=== PATIENT | female | born 1970 | race Caucasian/White ===

== ENCOUNTER → 2019-11-04 07:31 | Outpatient (CLI) | payer OTHER, SELFPAY ==
--- NOTE | ~2019-11-04 | XR_ITS ---
EXAMINATION: XR knee RT min 4V DATE: 11/04/2019 08:02 INDICATION: Right knee pain. TECHNIQUE: 4 views of right knee were obtained. COMPARISON: None. FINDINGS: Bone alignment is normal. No fracture. There is mild tricompartmental osteoarthritis. No kn ee joint effusion. IMPRESSION: 1. Mild right knee osteoarthritis. Reviewed, dictated and finalized at location B.
== END ==
PROVIDERS: PCP Nurse Practitioner Adult Health; Visit Provider Nurse Practitioner Adult Health
DX: M17.11 Unilateral primary osteoarthritis, right knee (principal)
CPT/HCPCS: 73564

== ENCOUNTER → 2019-11-10 08:03 | Outpatient (CLI) | payer OTHER, SELFPAY ==
--- NOTE | ~2019-11-10 | US_ITS ---
EXAMINATION: US right upper quadrant DATE: 11/10/2019 08:27 INDICATION: Elevated liver enzymes TECHNIQUE: Multiple grayscale and Doppler ultrasound images of the abdomen were obtained. COMPARISON: None available FINDINGS: The head and and body of the pancreas are normal. The pancreatic tail is obscured by bowel gas. The liver demonstrates increased echogenicity, heterogenous echotexture, and decreased through t ransmission. No surface nodularity. Normal hepatopetal flow in the main portal vein. The gallbladder is normal with no abnormal wall thickening, pericholecystic fluid or stones. The normal common bile d uct measures 3 mm. There was no sonographic Banegas sign. IMPRESSION: 1. Diffuse hepatic steatosis. Reviewed, dictated and finalized at location A.
== END ==
PROVIDERS: PCP Nurse Practitioner Adult Health; Visit Provider Nurse Practitioner Adult Health
DX: R74.8 Abnormal levels of other serum enzymes (principal); K76.0 Fatty (change of) liver, not elsewhere classified
CPT/HCPCS: 76705

== ENCOUNTER → 2020-01-06 07:24 | Outpatient (CLI) | payer OTHER, SELFPAY ==
--- NOTE | ~2020-01-06 | MM_ITS ---
EXAMINATION: MM screening belen BI w adolfo HISTORY: Screening TECHNIQUE: Craniocaudal and mediolateral oblique 3-D tomosynthesis images were obtained and synthetic 2-D images were generated. CAD analysis was submitted and interpreted. COMPARISON: Comparison to multiple prior studies sequentially, with oldest reviewed study dated 10/2011. BREAST PARENCHYMAL COMPOSITION: The breasts are heterogeneously dense, which may obscure small masses . FINDINGS: There is no evidence of suspicious mass, calcification, or architectural distortion to sugg est malignancy in either breast. There has been no suspicious interval change. IMPRESSION: 1. No mammographic evidence of malignancy. 2. Recommend routine screening mammography in one year. BI-RADS Category 1: Negative Reviewed, dictated and finalized at location A.
== END ==
PROVIDERS: PCP Nurse Practitioner Adult Health; Visit Provider Nurse Practitioner Adult Health
DX: Z12.31 Encounter for screening mammogram for malignant neoplasm of breast (principal)
CPT/HCPCS: 77063; 77067

== ENCOUNTER 2020-02-27 08:30 | Outpatient (RCR) | payer OTHER, SELFPAY ==
--- NOTE | 2020-01-30 13:51 | PTOPEVAL ---
Thank you for referring Jesenia Carpenter to [facility].? The patient is scheduled to be seen for therapy? 2 x/week for 4-6 weeks. Please review, sign, date and return this plan of care GRETEL. I agree with and certify that the following plan of care is medically necessary. Referring Physician Date Attending Provider: Jorge Potts MD Referring Provider: *PT Outpatient Evaluation Start: 01/30/20 12:27 Freq: Status: Active Protocol: Document 01/30/20 12:33 DERRELL (Rec: 01/30/20 13:37 DERRELL [id number]) Therapy Assessment Status Assessment Status Assessment Status Evaluation Outpatient Past Medical History Past Medical History No Past Medical/Surgical History Patient/Family Denies Significant Past Medical/ Surgical History Evaluation Information Problem Diagnosis right quad tendonitis Onset 2 yrs Cause chronic Subjective Information She has been having knee pain Query Text:As Reported By Patient/ for years with progression of Family symptoms in the past 6 months She reports increased difficulty picking up grandkids from floor. She reports increased pain with steps and prolonged walking. She knees have given out descending steps. She reports increased pain with prolonged sitting. She works from home and sits for 1-2 hour intervals. Prior to COVID she went to the gym 2-3x/wk for walking on the TM for 30 min. She performed limited resistance ex. Diagnostic Tests X-Rays For This Problem Yes: There is mild tricompartmental osteoarthritis Pain Assessment Timing of Pain Assessment Timing of Pain Assessment Assessment Pain Scale Pain Scale Used Numeric (1 - 10) Self Report Pain Assessment Right Knee(s) Reported Pain Level 5 Pain Description Aching,Sharp Pain Frequency Chronic,Continuous Lowest Pain Intensity 1 Greatest Pain Intensity 8 Pain Aggravating Factors Bending,Lifting,Prolonged Position,Sitting,Stair Climbing,Walking,Weight Bearing/Standing Pain Behaviors
--- NOTE | 2020-02-27 12:48 | PTOPEVAL ---
Thank you for referring Jesenia Carpenter to [facility].? The patient is scheduled to be seen for therapy? 2 x/week for 3 weeks to address progression of HEP and continued pain. Please review, sign, date and return this plan of care GRETEL. I agree with and certify that the following plan of care is medically necessary. Referring Physician Date Attending Provider: Jorge Potts MD Referring Provider: Progress Note *PT Outpatient Evaluation Start: 01/30/20 12:27 Freq: Status: Active Protocol: Document 02/27/20 08:29 DERRELL (Rec: 02/27/20 09:16 DERRELL [id number]) Outpatient Past Medical History Past Medical History No Past Medical/Surgical History Patient/Family Denies Significant Past Medical/ Surgical History Evaluation Information Problem Diagnosis right quad tendonitis Onset 2 yrs Cause chronic Subjective Information She has been having knee pain Query Text:As Reported By Patient/ for years with progression of Family symptoms in the past 6 months Reports increased pain with prolonged standing > 1 hr. She walked 3 hours on Sat for shopping with increased knee pain. She will use icey hot for pain relief. States the increased pain does not last as long as it did before therapy. She reports improved ability to pickle sorter grandkids from floor with improved body mechanics. She denies increased pain with negotiating steps, but increased pain with prolonged walking. She reports her knees have given out only once on descending steps. She limits her prolonged sitting and will change LE position if sitting for longer times. She is performing her HEP 4x/ wk. Pain Assessment Timing of Pain Assessment Timing of Pain Assessment Re-assessment Pain Scale Pain Scale Used Numeric (1 - 10) Self Report Pain Assessment Right Knee(s) Reported Pain Level 4 Pain Description Aching Pain Frequency Chronic,Continuous Lowest Pain Intensity 1 Greatest Pain Intensity
--- NOTE | 2020-03-02 11:21 | PCPTNOTE ---
Pt called to cancel her remaining appointment per MD request.
--- NOTE | 2020-03-02 11:37 | PCPTNOTE ---
Admitting Provider: Attending Provider: Jorge Potts MD Patient:Jesenia Carpenter Date of :1970 Discharge Note Patient has been seen for 8 therapy visits from 01/30/20-02/27/20 to address chronic knee pain. She has improved tolerance with daily activities, but continued symptoms with walking and standing activities. She is indep with her HEP. She has partially achieved her therapy goals at this time. Will DC skilled therapy services at this time. Thank you for referring this patient to [facility]. Please review, sign, date and return this discharge summary GRETEL. I have been updated about the patient's current status and I agree with discharge from the above service at this time. Referring Physician Date
== END 2020-03-05 10:55 | disposition home or self-care (01) ==
LOC: ANHPT 08:30
PROVIDERS: PCP Nurse Practitioner Adult Health; Visit Provider Orthopaedic Surgery
DX: M25.561 Pain in right knee (principal); M76.899 Other specified enthesopathies of unspecified lower limb, excluding foot
CPT/HCPCS: 97035; 97110; 97140; 97161; 97162; 97530

== ENCOUNTER 2020-03-02 01:57 | Outpatient (CLI) | payer OTHER, SELFPAY ==
[2020-03-02 18:46] LABS: SARS-CoV-2 RNA PCR Negative
== END 2020-03-02 01:58 | disposition home or self-care (01) ==
LOC: ANHCOVIDDT 01:58
PROVIDERS: PCP Nurse Practitioner Adult Health; Visit Provider Internal Medicine Gastroenterology
DX: Z01.818 Encounter for other preprocedural examination (principal); Z20.828 Contact with and (suspected) exposure to other viral communicable diseases
CPT/HCPCS: 87635; C9803; U0003

== ENCOUNTER 2020-03-05 01:18 | Day surgery (SDC) | payer OTHER, SELFPAY ==
[2020-02-24 10:46] VITALS: BMI 33.5
[2020-03-05 06:38] VITALS: BP 131/80; PULSE 79; RESP 16; TEMP 36.5; O2SAT 99; BMI 31.9
[2020-03-05] MEDS: LACTATED RINGERS 1,000 ML 150 ML IV CONT (06:47)
--- NOTE | 2020-03-05 07:09 | WPDANESEPPF ---
Anes - Initial Pre Proc Eval Procedure: Operation Date: 03/05/20 08:00 Proposed Procedures p Screening Colonoscopy - Garrison Devi MD Date/Time: 03/05/20 07:09 Surgeon: Garrison Devi MD Pre Op Diagnosis: Neoplasm Screening Patient Data Age: 50 Gender: F Height: 5 ft 3 in Weight: 81.9 kg Last Vital Signs Temp 36.5 C 03/05/20 06:38 Pulse 79 03/05/20 06:38 Resp 16 03/05/20 06:38 BP 131/80 03/05/20 06:38 Pulse Ox 99 03/05/20 06:38 Allergies Allergy/AdvReac Type Severity Reaction Status Date / Time Penicillins Allergy Unknown Unknown Verified 03/05/20 06:33 Home Medications Medication Instructions Recorded Confirmed Type galcanezumab-gnlm 120 mg/mL 120 mg SUBCUT MONTHLY 01/19/20 03/01/20 History subcutaneous syringe meloxicam 7.5 mg tablet 7.5 mg PO DAILY #30 tablet 01/19/20 03/01/20 Rx topiramate 50 mg tablet 50 mg PO BID 01/19/20 03/01/20 History Patient hx anesthesia problems: none Family hx anesthesia problems: none PMFSH Past Medical History Medical History BMI 32.0-32.9,adult Migraine Surgical History Surgical History H/O: hysterectomy History of appendectomy Family History Family History Father Family history of type 2 diabetes mellitus Cancer Other Family history of migraine headaches Social History Social History Smoking status: Never smoker Alcohol intake: never Living arrangements: with family Additional occupation/education comments: [employer] Gender identity (if verbalized by the patient): Female Spiritual care concerns: No Anes - Eval Final PreProcedure Day of Procedure 03/05/20 07:09 Patient weight: obese Lungs: clear to auscultation Airway: Mallampati scale class II Neurological: alert and oriented Last oral intake: >/= 8 hours ASA classification: II Emergent: no Anesthetic plan: proceed Anesthesia type and monitoring: general GIVS and standard monitoring Informed Consent: The patient's anesthetic plan and its attendant risks and benefits were discussed with the patient/family/POA. Questions were solicited and answers provided to the satisfaction of the patient/family/POA.
--- NOTE | 2020-03-05 07:55 | WPDGICN ---
Assessment and Plan Assessment and plan (1) Encounter for screening colonoscopy: Code(s): Z12.11 - Encounter for screening for malignant neoplasm of colon Status: Acute Assessment and Plan: Patient appears to be at average risk for colon polyps. Plan is for screening colonoscopy at this time. Because of patient's age. GI Consult Note Consult date/time: 03/05/20 07:55 HPI: Jesenia Carpenter is a 50 year old female Seen in evaluation at the request of Dr. Oliveira. patient presents for screening colonoscopy. Patient states that her current weight appetite bowel movements are normal. She denies abdominal pain. She has had no bleeding. Her family history is noncontributory. Review of Systems Review of Systems: All systems reviewed & are unremarkable except as noted in HPI and below PMFSH Past Medical History Medical History BMI 32.0-32.9,adult Migraine Surgical History Surgical History H/O: hysterectomy History of appendectomy Family History Family History Father Family history of type 2 diabetes mellitus Cancer Other Family history of migraine headaches Social History Social History Smoking status: Never smoker Alcohol intake: never Living arrangements: with family Additional occupation/education comments: [employer] Gender identity (if verbalized by the patient): Female Spiritual care concerns: No Meds Home Medications and Allergies Home Medications Medication Instructions Recorded Confirmed Type galcanezumab-gnlm 120 mg/mL 120 mg SUBCUT MONTHLY 01/19/20 03/01/20 History subcutaneous syringe meloxicam 7.5 mg tablet 7.5 mg PO DAILY #30 tablet 01/19/20 03/01/20 Rx topiramate 50 mg tablet 50 mg PO BID 01/19/20 03/01/20 History Allergies Allergy/AdvReac Type Severity Reaction Status Date / Time Penicillins Allergy Unknown Unknown Verified 03/05/20 06:33 Vital Signs Vital Signs - 24 hr 03/05/20 06:38 Temperature 97.7 F Pulse Rate 79 Respiratory Rate 16 Blood Pressure 131/80 Pulse Oximetry 99 Exam Narrative: Exam Narrative: Physical exam reveals patient to be alert. Vital signs stable. HEENT exam unremarkable. Lungs are clear to auscultation and percussion. Heart is without murmur or extra sounds. Abdominal exam bowel sounds are present soft nontender with no hepatosplenomegaly. Digital external rectal exam is normal.
[2020-03-05 08:24] VITALS: BP 118/73; PULSE 64; RESP 19; O2SAT 98
[2020-03-05 08:34] VITALS: BP 108/72; PULSE 60; RESP 18; O2SAT 98
[2020-03-05 08:44] VITALS: BP 103/72; PULSE 60; RESP 22; O2SAT 100
== END 2020-03-05 08:54 | disposition home or self-care (01) ==
PROVIDERS: PCP Nurse Practitioner Adult Health; Visit Provider Internal Medicine Gastroenterology
PROC: 0DJD8ZZ Inspection of Lower Intestinal Tract, Via Natural or Artificial Opening Endoscopic (ICD-10-PCS; CPT 45378; principal; 2020-03-05 08:00)
DX: Z12.11 Encounter for screening for malignant neoplasm of colon (principal); K64.8 Other hemorrhoids; G43.909 Migraine, unspecified, not intractable, without status migrainosus; E66.9 Obesity, unspecified; Z68.32 Body mass index [BMI] 32.0-32.9, adult
CPT/HCPCS: 45378; J2704; J7120

== ENCOUNTER → 2020-04-09 07:41 | Outpatient (CLI) | payer OTHER, SELFPAY ==
--- NOTE | ~2020-04-09 | MR_ITS ---
EXAMINATION: MR knee RT wo con DATE: 04/09/2020 08:26 INDICATION: Right knee pain TECHNIQUE: Magnetic resonance imaging (MRI) of the right knee was performed without intravenous contr ast. Sequences included coronal PD-weighted FSE, coronal PD-weighted FS FSE, sagittal T2-weighted FS E, sagittal PD-weighted FS FSE and axial PD weighted fat saturated FSE. COMPARISON: Right knee radiographs dated 11/04/2019 FINDINGS: Medial compartment: Longitudinal horizontal tear extending to the inferior articular surface of the body and posterior ho rn of the medial meniscus. 9 x 3 x 2 mm parameniscal cyst along the periphery of the meniscus at the junction of the body and posterior horn. Partial-thickness cartilage loss along the lateral tibial pl ateau with mild subchondral edema suggesting overlying chondral fissuring at the central aspect. Mild diffuse partial thickness cartilage loss along the weightbearing medial femoral condyle with deeper chondral ulceration posteriorly with irregularity to the articular cortex and mild subarticular cysti c change and edema. Lateral compartment: Lateral meniscus is normal. Articular cartilage is normal. Patellofemoral compartment: Deep chondral fissuring at the patellar apical ridge, medial and lateral facets with small focus of m inimal underlying subarticular edema at the inferior lateral facet. Trochlear cartilage is normal. Ligaments and tendons: Anterior and posterior cruciate ligaments are normal. The medial collateral ligament and fibular naomy ateral ligament complex are normal. Mild tendinopathy at the proximal patellar tendon. Quadriceps ten don is normal. The visualized medial and lateral hamstring tendons as well as the iliotibial band are normal. Fluid: Physiologic amount of fluid in the joint space. No loose osteochondral bodies identified. Osseous/other: Siphon the previous noted small regions of subarticular edema there is normal marrow signal. No fract ure or pathologic marrow replacing process. IMPRESSION: 1. Medial meniscal tear with small para meniscal cyst. 2. Mild osteoarthritis with regions of high-grade chondromalacia in the medial and patellofemoral com partments. Reviewed, dictated and finalized at location A. [employer]TAIN IMPRESSION: 1. Medial meniscal tear with small para meniscal cyst. 2. Mild osteoarthritis with regions of high-grade chondromalacia in the medial and patellofemoral compartments.
== END ==
PROVIDERS: PCP Nurse Practitioner Adult Health; Visit Provider Orthopaedic Surgery
DX: S83.241A Other tear of medial meniscus, current injury, right knee, initial encounter (principal); X58.XXXA Exposure to other specified factors, initial encounter
CPT/HCPCS: 73721

== ENCOUNTER 2021-03-04 00:23 | Day surgery (SDC) | payer OTHER, SELFPAY ==
[2021-02-22 13:52] VITALS: BMI 32.8
--- NOTE | 2021-02-22 14:01 | PC.NURSE ---
Report to the Outpatient Waiting Room, entrance under the green pavilion located off [facility], at time 0600 on date 03/04/21. OR Time: 0730. - You and your visitor will be asked a series of questions to screen for COVID 19 for your protection. - A mask is required within the hospital. - Only one visitor is allowed at this time. Patient visitors will be guided where to wait when not with patient. Preoperative COVID Testing Requirements: No COVID Test needed if: (proof is required; if not received patient will have Rapid Test prior to entry) - Patient has received COVID Vaccine at least 14 days prior to procedure date or - Patient has positive COVID test result within last 90 days of surgery date. COVID Test needed if above criteria is not met If not COVID vaccinated a COVID test must be conducted within 72 hours of surgery and patient is asked to isolate self from time of testing until procedure. You will go to the [facility] for your COVID testing. The [facility] site is located at the corner of [address] [facility]. You will only be called if COVID results are positive and your surgeon may reschedule your elective surgery date. Patients may have clear liquids (water, carbonated beverages, clear teas, apple juice) until 3 hours prior to surgery with a maximum of 20 ounces. - No food from midnight until time of surgery - Infants may have breast milk until 4 hours before surgery, infant formula 6 hours prior to surgery. - Children will be allowed to drink immediately following surgery. If applicable, please bring a bottle or sippy cup to assist with drinking. Juice, water, soda, and popsicles are readily available. For infants on formula, please bring formula the day of surgery. Pacifiers are allowed. Take the following medications with a SIP of water the morning of surgery: NONE Medications to discontinue per physician: VITAMINS/SUPPLEMENTS Date to take last dose: 02/28/21 Please no make-up, nail arabic, hairspray, perfume, deodorant, or body powder the day of surgery. No jewelry (including any body piercings) or valuables the day of surgery, leave them at home. Please take a shower or bath the night before, or the morning of, surgery with an antibacterial soap. Wear comfortable, loose fitting clothing. Children are encouraged to wear pajamas. - Jewelry must be removed prior to entering the operating room. Rings and piercings that are not removed may be cut off. - The hospital will not accept responsibility for valuables. - Please leave all valuables, including medications, at home the day of surgery. If you are going home after surgery, a licensed front end loader driver must drive you home. - NO public transportation without another adult. - We recommend that an adult stay with you for 24 hours following discharge. - We also recommend that you do not drive, make important decision, drink alcoholic beverages, or take any drugs that were not prescribed by your health care provider for at least 24 hours after your discharge time. For Pediatric surgeries, we recommend two adults accompany the child home (only one inside the building at this time). Follow any additional instructions given to you from your surgeon. Telephone instructions given to MARLA ZUNIGA and asked if any additional questions and then verbalized understanding. Patient advised to call surgeon office or pre surgery nurse liaison [phone] if any additional questions.
[2021-03-04] VITALS (8 sets, daily range): BP systolic 93–149; BP diastolic 73–89; PULSE 44–77; RESP 10–18; TEMP 36.1–36.2; O2SAT 98–100
--- NOTE | 2021-03-04 06:50 | WPDANESEPPF ---
Anes - Initial Pre Proc Eval Procedure: Operation Date: 03/04/21 07:30 Proposed Procedures p Right Knee Arthroscopy, Partial Meniscectomy - Jorge Potts MD Date/Time: 03/04/21 06:50 Surgeon: Jorge Potts MD Pre Op Diagnosis: right knee medial meniscal tear Patient Data Age: 51 Gender: F Height: 1.6 m Weight: 83.91 kg Allergies Allergy/AdvReac Type Severity Reaction Status Date / Time Penicillins Allergy Unknown Rash Verified 02/22/21 13:49 Home Medications Medication Instructions Recorded Confirmed Type galcanezumab-gnlm 120 mg/mL 120 mg SUBCUT MONTHLY 01/19/20 02/27/21 History subcutaneous syringe sumatriptan succinate 50 mg tablet 50 ea PO ONCE PRN 12/26/20 02/27/21 History Patient hx anesthesia problems: none Family hx anesthesia problems: none Results Review: All pre-operative results and documents have been reviewed as part of the pre-operative evaluation. [facility] Past Medical History Medical History BMI 32.0-32.9,adult Hyperlipidemia Migraine Tear of medial meniscus of right knee Surgical History Surgical History H/O: hysterectomy History of appendectomy Family History Family History Father Family history of type 2 diabetes mellitus Cancer Other Family history of migraine headaches Social History Social History Smoking status: Never smoker Alcohol intake: never Alcohol use details: occasional Substance use: never Substance use type: does not use Living arrangements: with family Additional occupation/education comments: [employer] Gender identity (if verbalized by the patient): Female Spiritual care concerns: No Anes - Eval Final PreProcedure Day of Procedure 03/04/21 06:50 Patient weight: obese Heart: regular rate and rhythm Lungs: clear to auscultation Airway: Mallampati scale class II Neurological: alert and oriented Last oral intake: >/= 8 hours ASA classification: II Emergent: no Anesthetic plan: proceed Anesthesia type and monitoring: general LMA and standard monitoring Results Review: All pre-operative results and documents have been reviewed as part of the pre-operative evaluation. Informed Consent: The patient's anesthetic plan and its attendant risks and benefits were discussed with the patient/family/POA. Questions were solicited and answers provided to the satisfaction of the patient/family/POA.
[2021-03-04] MEDS: LACTATED RINGERS 1,000 ML 30 ML IV CONT ×2 (06:58→08:36)
[2021-03-04] MEDS: ACETAMINOPHEN 500 MG TABLET 1000 MG PO (06:59)
[2021-03-04] MEDS: KETOROLAC 15 MG/ML VIAL (*BKC) IV PUSH (06:59)
--- NOTE | 2021-03-04 07:20 | WPDHPUPDATE1 ---
History and Physical Update Update Date/Time: 03/04/21 07:20 History and Physical has been reviewed, including an updated exam of the patient. There are NO changes in the patient's condition. Risks, benefits, and alternatives have been discussed and questions answered. Patient agrees to proceed with procedure.
[2021-03-04] MEDS: ceFAZolin 2 GM/D5W 50 ML 2 GM/50 ML BAG IVPB (07:30)
--- NOTE | 2021-03-04 08:50 | P.OP_ITS ---
Procedure Note - Detailed Date of Procedure 03/04/21 Pre-op Diagnosis right knee medial meniscal tear; right knee discoid lateral meniscus Post-op Diagnosis same Procedure Performed right knee arthroscopy partial meniscectomy Surgeon Jorge Potts MD Anesthesia general Description of Procedure The patient was identified and proper site identified. She was taken to the operating room and transferred to the OR table placing her supine taking care to pad the torso and extremities. After general anesthetic induction and intubation, a nonsterile tourniquet was placed high on the right thigh but was not inflated. The right lower extremity was positioned, prepped and draped in usual sterile fashion. 10 cc of 1% lidocaine was injected into the subcutaneous tissue in the area of the portals at start of the procedure, and an additional 10 at the end. The portals were established and the arthroscopy was carried out. articular cartilage showed very mild fraying and fibrillation in the medial, lateral and anterior compartments. How [place] gutters were centrally clear. Complex tearing noted medial meniscus posterior horn into the midbody. Discoid lateral meniscus appreciated. Anterior and posterior cruciate ligaments in continuity. Medial meniscus was contoured back to a stable rim with basket forceps and shaver. The discoid lateral meniscus was saucerized by removing some of the meniscal material from the center portion giving a more normal C- shaped contour. Lateral meniscus was stable after the saucerization. The knee was flushed with a copious amount of arthroscopic fluid and equipment was removed. Portals were closed with three O nylon suture and a sterile dressing was applied. She tolerated the procedure well, was awakened, extubated and taken to recovery area in stable condition. There were no known intraoperative complications. Estimated blood loss was negligible. She received perioperative antibiotics. Estimated Blood Loss 10 Tourniquet Time 0 Drains No Packing No Pathology none sent Complications No immediate complications Condition stable Disposition PACU
--- NOTE | 2021-03-04 09:50 | SUR.PREOP ---
PT DENIES NEED FOR CRUTCHES. STATES SHE HAS A WALKER THAT SHE WILL BE USING
[2021-03-04] MEDS: oxyCODONE HCL (*CRX) 5 MG TAB IR PO (10:12)
== END 2021-03-04 10:38 | disposition home or self-care (01) ==
PROVIDERS: PCP Nurse Practitioner Adult Health; Visit Provider Orthopaedic Surgery
PROC: (CPT 29870; principal; 2021-03-04 07:30)
DX: M23.321 Other meniscus derangements, posterior horn of medial meniscus, right knee (principal); M23.361 Other meniscus derangements, other lateral meniscus, right knee; E66.9 Obesity, unspecified; Z68.32 Body mass index [BMI] 32.0-32.9, adult
CPT/HCPCS: 29880; A9270; J0690; J1100; J1885; J2250; J2405; J2704; J7120

== ENCOUNTER 2021-03-21 09:30 | Outpatient (RCR) | payer OTHER, SELFPAY ==
--- NOTE | 2021-03-06 11:08 | PTOPEVAL ---
PHYSICAL THERAPY EVALUATION Thank you for referring Jesenia Carpenter to [facility].? Jesenia was evaluated for the dx of right knee MT/orthoscopic surgery. The patient is scheduled to be seen for therapy?2 x/week for 4 weeks. Please review, sign, date and return this plan of care GRETEL. I agree with and certify that the following plan of care is medically necessary. 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 The patient reports having knee pain for a long time but got worse the last 2-3 years. The patient had an MRI and found a meniscal tear. The patient had surgery 2 days ago and reports pain still present from surgery. The patient plans to progress work tolerance as able on her own and now just wants to get her knee more mobile and her walking back to normal. Pain Assessment Timing of Pain Assessment Timing of Pain Assessment Assessment Pain Scale Pain Scale Used Numeric (1 - 10) Self Report Pain Assessment Right Knee(s) Reported Pain Level 3 Pain Description Aching,Tightness Pain Frequency Acute,Chronic Pain Aggravating Factors Bending,Exercise/Activity, Supine Pain Behaviors Guarding Pain Score Pain Score 3: Self Report Interventions Used Interventions Used By Clinicians Education,Exercise Pain Relief Interventions Used By Elevation,Exercise,Ice Patient Lower Extremity Range of Motion General Lower Extremity Range of Motion Gross Lower Extremity Range of Motion left knee 0-125' active motion Comments right knee 0-82' active, 0-96' assisted motion Lower Extremity Muscle Strength Testing General Lower Extremity Strength Reason Not Measured WNL/Left
--- NOTE | 2021-03-25 13:17 | PCPTNOTE ---
Admitting Provider: Attending Provider: Jorge Potts MD Patient:Jesenia Carpenter Date of :1970 Physical therapy discharge summary Patient has received 5 therapy visits to address impairment related to right knee surgery. Patient?s initial visit was on 03/06/2021. She demonstrates improved pain, improved knee motion, improved ability to perform functional mobility task. She is indep with her home exercise program at this time. She has achieved her therapy goals. Will discharge therapy services at this time. Thank you for referring this patient to [facility]. Please review, sign, date and return this discharge summary GRETEL. I have been updated about the patient's current status and I agree with discharge from the above service at this time. Referring Physician Date
== END 2021-03-26 09:22 | disposition home or self-care (01) ==
LOC: ANHPT 09:30
PROVIDERS: PCP Nurse Practitioner Adult Health; Visit Provider Orthopaedic Surgery
DX: Z48.89 Encounter for other specified surgical aftercare (principal); Z98.890 Other specified postprocedural states
CPT/HCPCS: 97110; 97140; 97162

== ENCOUNTER → 2021-06-25 07:13 | Outpatient (CLI) | payer OTHER, SELFPAY ==
--- NOTE | ~2021-06-25 | MM_ITS ---
EXAMINATION: MM screening belen BI w adolfo HISTORY: Screening TECHNIQUE: Craniocaudal and mediolateral oblique 3-D tomosynthesis images were obtained and synthetic 2-D images were generated. CAD analysis was submitted and interpreted. COMPARISON: Comparison to multiple prior studies sequentially, with oldest reviewed study dated 10/2011. BREAST PARENCHYMAL COMPOSITION: The breasts are heterogeneously dense, which may obscure small masses . FINDINGS: There is no evidence of suspicious mass, calcification, or architectural distortion to sugg est malignancy in either breast. There has been no suspicious interval change. IMPRESSION: 1. No mammographic evidence of malignancy. 2. Recommend routine screening mammography in one year. BI-RADS Category 1: Negative Reviewed, dictated and finalized at location A.
== END ==
PROVIDERS: PCP Nurse Practitioner Adult Health; Visit Provider Nurse Practitioner Adult Health
DX: Z12.31 Encounter for screening mammogram for malignant neoplasm of breast (principal)
CPT/HCPCS: 77063; 77067

== ENCOUNTER → 2023-04-09 07:12 | Outpatient (CLI) | payer OTHER, SELFPAY ==
--- NOTE | ~2023-04-09 | MM_ITS ---
EXAMINATION: MM screening belen BI w adolfo HISTORY: Screening TECHNIQUE: Craniocaudal and mediolateral oblique 3-D tomosynthesis images were obtained and synthetic 2-D images were generated. CAD analysis was submitted and interpreted. COMPARISON: Comparison to multiple prior studies sequentially, with oldest reviewed study dated 09/2018. BREAST PARENCHYMAL COMPOSITION: The breasts are heterogeneously dense, which may obscure small masses FINDINGS: There is a new asymmetry centrally in the left breast on CC view. The right breast is stabl e without evidence for malignancy. IMPRESSION: 1. New left breast asymmetry centrally on CC view. 2. Additional mammographic views and possible breast ultrasound are recommended. BI-RADS Category 0: Incomplete: Needs additional imaging evaluation. Reviewed, dictated and finalized at location A. ER HAND IMPRESSION: 1. New left breast asymmetry centrally on CC view. 2. Additional mammographic views and possible breast ultrasound are recommended . BI-RADS Category 0: Incomplete: Needs additional imaging evaluation.
== END ==
PROVIDERS: PCP Clinical Nurse Specialist; Visit Provider Clinical Nurse Specialist
DX: Z12.31 Encounter for screening mammogram for malignant neoplasm of breast (principal); R92.8 Other abnormal and inconclusive findings on diagnostic imaging of breast
CPT/HCPCS: 77063; 77067

== ENCOUNTER → 2023-04-29 08:10 | Outpatient (CLI) | payer OTHER, SELFPAY ==
--- NOTE | ~2023-04-29 | MMUS_ITS ---
EXAMINATION: MM diagnostic belen LT w adolfo, US breast LT complete HISTORY: New left mammographic asymmetry reported centrally on 04/09/2023 screening craniocaudal view TECHNIQUE: Additional 3-D tomosynthesis images of the left breast were performed and synthetic 2-D im ages were generated. Rolled medial craniocaudal and rolled lateral craniocaudal views. CAD analysis w as submitted and interpreted. High resolution complete left breast ultrasound examination including a ll 4 quadrants and subareolar area was performed. COMPARISON: 04/09/2023, 06/25/2021 bilateral screening mammogram examinations FINDINGS: MAMMOGRAPHIC FINDINGS: There is an approximately 3.7 mm circumscribed opacity in the posterior central left breast 2.2 cm de ep to the nipple on coned compression craniocaudal view. A similar finding is similar shape and size is noted on June 25, 2021 mammogram (craniocaudal Tomosynthesis image 41/80). The circumscribed charlene ns and the lack of significant change since 06/25/2021, almost 3 years ago, is consistent with benign p rocess. No suspicious mass, architectural distortion, malignant calcification, skin thickening or retraction is detected. ULTRASOUND: 3:00 4 cm from nipple: Parallel circumscribed sonolucency measuring approximately 3 x 9 mm, consisten t with cyst or duct. 5:00 subareolar area approximately 5 x 6 mm relatively sonolucent area without internal vascularity o r posterior shadowing, benign in appearance 6:00 subareolar area: 1.5 x 3 x 3.8 mm circumscribed parallel sonolucency, consistent with benign pro cess Mildly prominent ducts are noted in the subareolar area. No suspicious mass or shadowing is detected. IMPRESSION: 1. Benign findings 2. Routine mammographic screening is recommended BI-RADS Category 2: Benign finding(s). Reviewed, dictated and finalized at location A. WOOD LATHE OPERATOR IMPRESSION: 1. Benign findings 2. Routine mammographic screening is recommended BI-RADS Category 2: Benign finding(s).
== END ==
PROVIDERS: PCP Clinical Nurse Specialist; Visit Provider Clinical Nurse Specialist
DX: R92.8 Other abnormal and inconclusive findings on diagnostic imaging of breast (principal)
CPT/HCPCS: 76641; 77061; 77065; G0279

== ENCOUNTER 2024-02-05 08:45 | Outpatient (CLI) | payer OTHER, SELFPAY ==
[2024-02-05 12:02] LABS: Basophils Absolute Auto 0.1 K/mm3 (0.0-0.1); Basophils Percent Auto 1.8 % (0.2-1.2); Eosinophils Absolute Auto 0.4 K/mm3 (0-0.3); Eosinophils Percent Auto 6.2 % (0-4.4); Hematocrit 40.8 % (37.0-47.0); Hemoglobin 13.7 g/dL (12.0-15.0); Immature Granulocyte Absolute 0.01 K/mm3 (0.00-0.031); Immature Granulocyte Percent A 0.2 % (0-0.5); Lymphocytes Absolute Auto 2.46 K/mm3 (0.9-3.2); Lymphocytes Percent Auto 43.7 % (18.3-44.2); Mean Corpuscular HGB Conc 33.6 g/dl (32-36); Mean Corpuscular Hemoglobin 32.3 pg (26-34); Mean Corpuscular Volume 96.2 fl (80-100); Mean Platelet Volume 10.8 fl (7.4-10.4); Monocytes Absolute Auto 0.5 K/mm3 (0.1-0.6); Monocytes Percent Auto 8.7 % (2.6-8.5); Neutrophils Absolute Auto 2.2 K/mm3 (1.3-6.7); Neutrophils Percent Auto 39.4 % (45.5-73.1); Platelet Count Result 145 k/mm3 (150-375); Red Blood Count 4.24 M/mm3 (4.2-5.4); Red Cell Distribution Width 12.7 % (11.5-14.5); White Blood Count 5.6 K/mm3 (4.5-10.0)
[2024-02-05 12:16] LABS: Alanine Aminotransferase 141 U/L (6-35); Albumin Level 4.1 g/dL (3.5-5.1); Alkaline Phosphatase 82 U/L (38-126); Anion Gap 4 mmol/L (4-12); Aspartate Amino Transferase 129 U/L (14-36); Bilirubin,Total 1.1 mg/dL (0.2-1.3); Blood Urea Nitrogen 9 mg/dL (7-17); Calcium 8.7 mg/dL (8.4-10.2); Carbon Dioxide 31 mmol/L (22-30); Chloride 104 mmol/L (98-107); Cholesterol 169 mg/dL (0-200); Estimated Glomerular Filt Rate > 60; Glucose 93 mg/dL (65-110); HDL Direct 68 mg/dL; Potassium 3.6 mmol/L (3.4-5.0); Sodium 139 mmol/L (137-145); Triglycerides 87 mg/dL (<150)
[2024-02-05 12:26] LABS: LDL Cholesterol Direct 78 mg/dL
[2024-02-05 12:48] LABS: Vitamin D 25 Hydroxy 53.7 ng/mL
[2024-02-05 12:58] LABS: Thyroid Stimulating Hormone 0.901 uIU/mL (0.465-4.680)
== END 2024-02-05 08:46 | disposition home or self-care (01) ==
PROVIDERS: PCP Clinical Nurse Specialist; Visit Provider Clinical Nurse Specialist
DX: E78.5 Hyperlipidemia, unspecified (principal); E55.9 Vitamin D deficiency, unspecified; G43.019 Migraine without aura, intractable, without status migrainosus; K76.0 Fatty (change of) liver, not elsewhere classified; Z13.29 Encounter for screening for other suspected endocrine disorder
CPT/HCPCS: 36415; 80053; 80061; 82306; 84443; 85025

== ENCOUNTER 2024-02-08 13:14 | Outpatient (CLI) | payer OTHER, SELFPAY ==
[2024-02-08 19:59] LABS: Basophils Absolute Auto 0.1 K/mm3 (0.0-0.1); Basophils Percent Auto 1.3 % (0.2-1.2); Eosinophils Absolute Auto 0.3 K/mm3 (0-0.3); Eosinophils Percent Auto 4.9 % (0-4.4); Hematocrit 40.9 % (37.0-47.0); Hemoglobin 14.1 g/dL (12.0-15.0); Immature Granulocyte Absolute 0.01 K/mm3 (0.00-0.031); Immature Granulocyte Percent A 0.2 % (0-0.5); Lymphocytes Absolute Auto 2.37 K/mm3 (0.9-3.2); Lymphocytes Percent Auto 43.1 % (18.3-44.2); Mean Corpuscular HGB Conc 34.5 g/dl (32-36); Mean Corpuscular Hemoglobin 32.7 pg (26-34); Mean Corpuscular Volume 94.9 fl (80-100); Monocytes Absolute Auto 0.4 K/mm3 (0.1-0.6); Monocytes Percent Auto 7.8 % (2.6-8.5); Neutrophils Absolute Auto 2.4 K/mm3 (1.3-6.7); Neutrophils Percent Auto 42.7 % (45.5-73.1); Platelet Count Result 139 k/mm3 (150-375); Red Blood Count 4.31 M/mm3 (4.2-5.4); Red Cell Distribution Width 12.6 % (11.5-14.5); White Blood Count 5.5 K/mm3 (4.5-10.0)
[2024-02-08 20:27] LABS: Alanine Aminotransferase 162 U/L (6-35); Alkaline Phosphatase 75 U/L (38-126); Anion Gap 8 mmol/L (4-12); Aspartate Amino Transferase 139 U/L (14-36); Bilirubin,Total 1.1 mg/dL (0.2-1.3); Blood Urea Nitrogen 13 mg/dL (7-17); Calcium 8.6 mg/dL (8.4-10.2); Carbon Dioxide 31 mmol/L (22-30); Chloride 100 mmol/L (98-107); Estimated Glomerular Filt Rate > 60; Glucose 120 mg/dL (65-110); Potassium 3.1 mmol/L (3.4-5.0); Sodium 139 mmol/L (137-145)
[2024-02-08 22:31] LABS: HIV 1/2 Ab P24 Ag Result Negative (Negative)
[2024-02-08 23:33] LABS: Hepatitis B Surface Antigen Negative (Negative)
[2024-02-08 23:42] LABS: Iron 82 ug/dL (37-170)
[2024-02-08 23:50] LABS: Hepatitis C Virus Antibody Negative (Negative)
[2024-02-08 23:51] LABS: Percent Iron Saturation 26 % (20-50)
== END 2024-02-08 13:15 | disposition home or self-care (01) ==
LOC: ANHGOSHLAB 13:16
PROVIDERS: PCP Clinical Nurse Specialist; Visit Provider Clinical Nurse Specialist
DX: R74.01 Elevation of levels of liver transaminase levels (principal); R74.8 Abnormal levels of other serum enzymes
CPT/HCPCS: 36415; 80053; 82728; 83540; 83550; 85025; 86703; 86803; 87340; G0432

== ENCOUNTER 2024-02-12 07:47 | Outpatient (CLI) | payer OTHER, SELFPAY ==
--- NOTE | ~2024-02-12 | US_ITS ---
Abdominal Sonogram: Real-time sonographic imaging of the abdomen was performed. Clinical History: Abnormal liver enzyme levels Findings: The liver appears echogenic, with no evidence of solid mass lesion or bile duct dilatation . Small hepatic cyst present. Main portal vein demonstrates normal direction of flow. The spleen is n ormal in size without evidence of focal lesion. The gallbladder is well distended, and appears arnel l with no evidence of gallstone or wall thickening. The common bile duct measures 4 mm. The visualiz ed pancreas, aorta, and IVC are unremarkable. The right kidney measures 9.5 cm in length and the lef t kidney measures 11.1 cm. There is no hydronephrosis or renal calculus. Impression: Diffuse fatty infiltration of the liver. Reviewed, dictated and finalized at location M. DIESEL MOTOR MECHANIC Impression: Diffuse fatty infiltration of the liver.
== END 2024-02-12 07:48 | disposition home or self-care (01) ==
PROVIDERS: PCP Clinical Nurse Specialist; Visit Provider Clinical Nurse Specialist
DX: R74.01 Elevation of levels of liver transaminase levels (principal); K76.0 Fatty (change of) liver, not elsewhere classified
CPT/HCPCS: 76700

== ENCOUNTER 2024-07-21 07:13 | Outpatient (CLI) | payer OTHER, SELFPAY ==
--- NOTE | ~2024-07-21 | US_ITS ---
US abdomen limited INDICATION: Elevated liver enzymes PROCEDURE: Realtime right upper abdominal ultrasound. COMPARISON: 02/12/2024 FINDINGS: The pancreas is normal without focal mass or pancreatic ductal dilation. There is a liver cyst measuring 1.8 cm. Normal liver echotexture. No solid hepatic masses are seen. There is normal di rectional flow in the portal vein. The gallbladder is normal without stones, gallbladder wall thickening or pericholecystic fluid. Comm on bile duct measures 4 mm. No sonographic Banegas's sign. IMPRESSION: 1: Unremarkable limited abdominal ultrasound. Reviewed, dictated and finalized at location A.
--- OUTSIDE RECORDS SUMMARY | 2024-07-21 07:16 | XMS_ITS | Clinical Summary ---
Author Organization [facility] Address [address] [place] [address] Care Team Providers Care Desk Reporter Name Role Phone Alphonse Pond MD Primary Care Provider Source Comments [facility],non-owned Affiliates and Associated Physician Practices is amultiple site organization consisting of ambulatory clinics and hospital sitesin [place], [place], [place] and [place]. This disclosure is being madepursuant to the Care Everywhere program and may not contain all information available regarding this patient. Last updated 17.[facility] Allergies Active Allergy Reactions Criticality Noted Date Comments Penicillins Rash Medium 04/28/2017 As child Medications * Be aware that medications may not be up to date on this document. Alwaysverify current medications with the patient. topiramate (TOPAMAX) 50 MG tablet Take 50 mg by mouth 2 times daily Active SUMAtriptan (IMITREX) 25 MG tablet Take 25 mg by mouth daily as needed - may repeat one time for Migraine Maximum daily dose: 200 mg/24 hours Active Encounters Date Type Department Care Team Description 05/19/2024 9:30 AM PLAN CONSULTANT Procedure visit [facility] - [address] [place] [id number] Fidencio Chacko MD Elevated liver enzymes 05/19/2024 Travel 05/13/2024 Travel from Last 3 Months Family History Medical History Relation Name Comments Diabetes - Type 2 Father Relation Name Status Comments Father Alive Mother Alive Social History Tobacco Use Types Packs/Day Years Used Date Smoking Tobacco: Never Smokeless Tobacco: Never Comments No Sex and Gender Information Value Date Recorded Sex Assigned at Not on file Legal Sex Female 6:17 AM PLAN CONSULTANT Gender Identity Not on file Sexual Orientation Not on file Last Filed Vital Signs Vital Sign Reading Time Taken Comments Blood Pressure 110/80 04/28/2017 9:58 AM PLAN CONSULTANT Pulse 96 04/28/2017 9:58 AM PLAN CONSULTANT Temperature 37.1 C (98.8 F) 04/28/2017 9:58 AM PLAN CONSULTANT Respiratory Rate 16 04/28/2017 9:58 AM PLAN CONSULTANT Oxygen Saturation 98% 04/28/2017 9:58 AM PLAN CONSULTANT Inhaled Oxygen Concentration - - Weight 74.8 kg (165 lb) 04/28/2017 9:58 AM PLAN CONSULTANT Height 160 cm (5' 3 ) 04/28/2017 9:58 AM PLAN CONSULTANT Body Mass Index 29.23 04/28/2017 9:58 AM PLAN CONSULTANT Plan of Treatment Health Maintenance Due Date Last Done Comments COLOGUARD (AGES 45-75) - COL ON CA SCREENING 1970 COLON MONITORING 1970 COLONOSCOPY - COLON CA SCREENING 1970 CT COLONOGRAPHY - COLON CA SCREENING 1970 Colorectal Cancer Screening 1970 FIT - COLON CA SCREENING 1970 FLEX SIG - COLON CA SCREENING 1970 LIPID TESTING 1970 MAMMOGRAM 1970 PAP SMEAR 1970 HIV SCREENING 1985 HEPATITIS C SCREENING 02/01/1988 DTAP/TDAP/TD VACCINES (1 - Tdap) 1989 HEPATITIS B VACCINE (1 of 3 - 19+ 3-dose series) 1989 PNEUMOCOCCAL VACCINE 50+ (1 of 1 - PCV) 02/06/2020 ZOSTER VACCINE (1 of 2) 02/06/2020 COVID-19 VACCINE (1 - 2023-2 5 season) 2023 DEPRESSION SCREENING 03/23/2024 INFLUENZA VACCINE (Season Ended) 2024 HIB VACCINE Aged Out No longer eligi ble based on patient's age to complete this topic HPV VACCINE Aged Out No longer eligi ble based on patient's age to complete this topic MENINGOCOCCAL (Group B) VACC INE SHARED DECISION-MAKING Aged Out No longer eligibl e based on patient's age to complete this topic MENINGOCOCCAL GROUPS A/C/Y/W VACCINE Aged Out No longer eligible b ased on patient's age to complete this topic Procedures Procedure Name Priority Date/Time Associated Diagnosis Comments CA LIVER ELASTOGRAPHY Routine 05/19/2024 9:23 AM PLAN CONSULTANT Elevated liver enzymes from Last 3 Months Results * CA LIVER ELASTOGRAPHY (05/19/2024 9:23 AM PLAN CONSULTANT) Narrative Fidencio Stephens MD - 05/19/2024 9:23 AM PLAN CONSULTANT Fidencio Stephens MD 05/21/2024 10:45 PM Diagnosis: Elevated liver enzymes RN verified patient NPO for prior 3 hours. Procedure explained. Date of Exam: 05/19/2024 Liver Stiffness: (LSM, kPa) median: 15.2 IQR/Median% (ideally < 30%): 8% CAP (controlled attenuation parameter): 277 Technical Difficulty: None Ordering Provider: Debbie Gauthier APRN-CNP Fibroscan interpretation: I have personally reviewed the Fibroscan report and associated tracings. The calculated Liver Stiffness Measurement (LSM, kPa) indicates that: The probability of advanced liver fibrosis is: high. The loss of ultrasound signal, (controlled attenuation parameter, CAP [dB/m]), indicates that the probability of hepatic steatosis is: moderate. Fidencio Huynh MD The following criteria are used to indicate the probability of advanced (stage 3-4) fibrosis: < 7.0 kPa: low 7.0-8.9 kPa: low to moderate 9.0-14.9 kPa: moderate 15-20 kPa: high > 20 kPa: very high Liver stiffness > 12 kPa is associated with an increased risk of cirrhosis-related complications over the next 3-5 years (Yadi, 2022). Liver stiffness > 20 kPa is also associated with a high probability of complications of portal hypertension including varices and ascites. Liver stiffness > 50 kPa is associated with a high risk of variceal bleeding. These interpretations are based on the following published data: Yadi J, Cecilio nowak H, Anselmo M, Sanjuana C, Joycelyn M, Cure S, Abhijito J, Nasr P, Yoli L, Hernando CM, Mihaela S, S devaughn Y, Allison E, Tiki A, Megan M, Rubén J, Monty A and Micheal Nowak. Non-invasive tests accurately stratify patients with NAFLD based on their risk of liver-related events. J Hepatol (2021) 76: 5501-1306. Herber PJ, Delma M, Carolina M, et al. Accuracy of FibroScan controlled attenuation parameter and liver stiffness measurement in assessing steatosis and fibrosis in patients with nonalcoholic fatty liver disease. Gastroenterology 2019;156:1994-3535. Tushar MS, Afsaneh R, Van Natta ML, et al. Vibration-controlled transient elastography to assess fibrosis and steatosis in patients with nonalcoholic fatty liver disease. Clin Gastroenterol Hepatol 2019;17:156-163. Note that scores have been developed that incorporate the Fibroscan liver stiffness measurement from large cohorts of patients with liver biopsies to further refine the ability of Fibroscan to identify patients with MASH and advanced fibrosis. These include the FAST (Fibroscan-AST) score (Suad, 2021) and the Agile3+ and Agile4 scores (Lena, 2022; Lexis, 202). Suad TA, Van Natta ML, Massey M, Jose Carlos A, et al. Validation of the accuracy of the FAST score for detecting patients with at-risk nonalcoholic steatohepatitis (CHENG) in a [place] cohort and comparison to other non-invasive algorithms. PLoS ONE (2021) 17: [id number]. Lena AJ, Zayda J, Younrosario ZM, et al. Enhanced diagnosis of advanced fibrosis and cirrhosis in individuals with NAFLD using FibroScan-based Agile scores. J Hepatol (2022) 78: 247-259. Lexis et al. Vibration-controlled transient elastography scores to predict liver-related events in steatotic liver disease. TERESITA (2023) 331: 6960-2848 Fibroscan LSM can also be used with laboratory parameters without formulas to assess prognosis. According to the Baveno-VII criteria (Miller, 2021), Fibroscan LSM <=15 kPa plus a platelet count of >=[id number]/L rules out clinically significant portal hypertension (sensitivity and negative predictive value >90%) in patients with compensated advanced chronic liver disease. Miller R, Mo Rick, Ronan G, Pepito T, Ambar Coelho on behalf of the [facility] VII Faculty. [facility]--Renewing consensus in portal hypertension. J Hepatol (2021) 76: 959-974 Assessing the likelihood of advanced fibrosis in patients with intermediate liver stiffness measurement (LSM) by Fibroscan (e.g., 8-15 kPa) can be improved by also calculating the FIB-4 score (Armond et al. Hepatology Communications 2019;3:0881-5072) or NAFLD Fibrosis score (Rice et al. Clinical Gastroenterology and Hepatology 2019;17:1420-2796 using routine clinical data. Notes: 1. Fibroscan cannot reliably identify earlier stages of fibrosis (ie distinguish F0 from F1 and F2) and thus a histologic stage cannot be predicted from the Fibroscan reading. 2. Liver stiffness can be increased by factors other than fibrosis including passive congestion, infiltrative processes, active alcoholism, recent moderate alcohol consumption in the 2 weeks before the exam, biliary obstruction and marked inflammation. The interpretation of the Fibroscan result provided above may not have taken such clinical factors into account. 3. Identifying steatosis by an elevated CAP score (> 250 db/m) is useful for establishing a diagnosis of steatotic liver disease. However the severity of steatosis does not correlate with liver related outcomes. Disease etiology also influences Fibroscan cutoff values for fibrosis stages and the following cutoffs have been proposed (Linden et al, Clin Gastro Hepatol 2015; 13:27-36): Cutoffs for Stage 3 and Stage 4 fibrosis respectively: Hepatitis B: >9 and >11.7 kPa Hepatitis C: >9.5 and >12.5 kPa HCV-HIV: >11 and >14 kPa Cholestatic liver diseases: >10 and >17.9 kPa MASLD/MASH: >10 and >14 kPa CAP estimates of steatosis: normal <200 dB/m mild 200 to 250 dB/m moderate 250-290 dB/m substantial > 290 dB/m (Note that Fibroscan is not a quantitative measure of liver fat.) These criteria are estimates and may change as additional supporting data becomes available. (This additional interpretive data was last updated 03/25/24.) [email or web address] Fidencio Stephens MD PROCEDURE/MINOR ALEXANDER RGICAL ORDERABLES Final Result from Last 3 Months Insurance [facility] Care Teams Desk Reporter Relationship Specialty Start Date End Date Alphonse Pond MD [address] [place] [address] PCP - General Family Medicine 04/28/17
== END 2024-07-21 07:14 | disposition home or self-care (01) ==
PROVIDERS: PCP Clinical Nurse Specialist; Visit Provider Nurse Practitioner Family
DX: K76.0 Fatty (change of) liver, not elsewhere classified (principal)
CPT/HCPCS: 76705

== ENCOUNTER 2024-08-30 11:19 | Outpatient (CLI) | payer OTHER, SELFPAY ==
[2024-08-30 11:49] LABS: Hematocrit 38.9 % (37.0-47.0); Hemoglobin 13.2 g/dL (12.0-15.0); Mean Corpuscular HGB Conc 33.9 g/dl (32-36); Mean Corpuscular Hemoglobin 31.7 pg (26-34); Mean Corpuscular Volume 93.5 fl (80-100); Mean Platelet Volume 10.5 fl (7.4-10.4); Platelet Count Result 172 k/mm3 (150-375); Red Blood Count 4.16 M/mm3 (4.2-5.4); Red Cell Distribution Width 12.6 % (11.5-14.5); White Blood Count 7.3 K/mm3 (4.5-10.0)
[2024-08-30 12:05] LABS: Alanine Aminotransferase 39 U/L (6-35); Albumin Level 4.1 g/dL (3.5-5.1); Alkaline Phosphatase 69 U/L (38-126); Anion Gap 6 mmol/L (4-12); Aspartate Amino Transferase 46 U/L (14-36); Bilirubin,Total 0.7 mg/dL (0.2-1.3); Blood Urea Nitrogen 13 mg/dL (7-17); Calcium 9.3 mg/dL (8.4-10.2); Carbon Dioxide 29 mmol/L (22-30); Chloride 105 mmol/L (98-107); Cholesterol 123 mg/dL (0-200); Estimated Glomerular Filt Rate > 60; Glucose 99 mg/dL (65-110); HDL Direct 51 mg/dL; Potassium 3.7 mmol/L (3.4-5.0); Sodium 140 mmol/L (137-145); Total Protein 7.5 g/dL (6.3-8.2); Triglycerides 114 mg/dL (<150)
[2024-08-30 12:08] LABS: INR 1.2; Prothrombin Time 14.7 Seconds (11.1-14.7)
[2024-08-30 12:18] LABS: LDL Cholesterol Direct 43 mg/dL
--- OUTSIDE RECORDS SUMMARY | 2024-08-30 12:40 | XMS_ITS | Clinical Summary ---
Author Organization [facility] [employer] Address [address] [place] [address] Care Team Providers Care Resourcing Consultant Name Role Phone Alphonse Pond MD Primary Care Provider Source Comments [facility] [employer],non-owned Affiliates and Associated Physician Practices is amultiple site organization consisting of ambulatory clinics and hospital sitesin [place], [place], [place] and [place]. This disclosure is being madepursuant to the Care Everywhere program and may not contain all information available regarding this patient. Last updated 17.[facility] Allergies Active Allergy Reactions Criticality Noted Date [...] Maximum daily dose: 200 mg/24 hours Active Family History Medical History Relation Name Comments Diabetes - Type 2 Father Relation Name Status Comments Father Alive Mother Alive Social History Tobacco Use Types Packs/Day Years Used Date Smoking Tobacco: Never Smokeless Tobacco: Never Comments No Sex and Gender Information Value Date Recorded Sex Assigned at Not on file Legal Sex Female 6:17 AM IRRIGATION EQUIPMENT INSTALLER Gender Identity Not on file Sexual Orientation Not on file Last Filed Vital Signs Vital Sign Reading Time Taken Comments Blood Pressure 110/80 04/28/2017 9:58 AM IRRIGATION EQUIPMENT INSTALLER Pulse 96 04/28/2017 9:58 AM IRRIGATION EQUIPMENT INSTALLER Temperature 37.1 C (98.8 F) 04/28/2017 9:58 AM IRRIGATION EQUIPMENT INSTALLER Respiratory Rate 16 04/28/2017 9:58 AM IRRIGATION EQUIPMENT INSTALLER Oxygen Saturation 98% 04/28/2017 9:58 AM IRRIGATION EQUIPMENT INSTALLER Inhaled Oxygen Concentration - - Weight 74.8 kg (165 lb) 04/28/2017 9:58 AM IRRIGATION EQUIPMENT INSTALLER Height 160 cm (5' 3) 04/28/2017 9:58 AM IRRIGATION EQUIPMENT INSTALLER Body Mass Index 29.23 04/28/2017 9:58 AM IRRIGATION EQUIPMENT INSTALLER Plan of Treatment Health Maintenance Due Date [...] on patient's age to complete this topic Insurance [facility] Care Teams Resourcing Consultant Relationship Specialty Start Date End Date Alphonse Pond MD [address] [place] [id number] PCP - General Family Medicine 04/28/17
[2024-09-01 11:09] LABS: Alpha Fetoprotein Tumor Marker 2.5 ng/mL
== END 2024-08-30 11:20 | disposition home or self-care (01) ==
LOC: ANHLAB 11:20
PROVIDERS: PCP Clinical Nurse Specialist; Visit Provider Nurse Practitioner Family
DX: K76.0 Fatty (change of) liver, not elsewhere classified (principal); R74.01 Elevation of levels of liver transaminase levels
CPT/HCPCS: 36415; 80053; 80061; 82105; 82248; 84443; 85027; 85610

== ENCOUNTER 2024-09-26 07:14 | Outpatient (CLI) | payer OTHER, SELFPAY ==
--- NOTE | ~2024-09-26 | MM_ITS ---
EXAMINATION: MM screening contra [facility] BI w adolfo HISTORY: Screening mammogram TECHNIQUE: Craniocaudal and mediolateral oblique 3-D tomosynthesis images were obtained and synthetic 2-D images were generated. CAD analysis was submitted and interpreted. COMPARISON: 04/09/2023, 06/25/2021, 01/06/2020 BREAST PARENCHYMAL COMPOSITION:Not Dense. There are scattered areas of fibroglandular density. FINDINGS: No suspicious mass, calcification, or architectural distortion are identified in either tai ast to suggest malignancy. There has been no suspicious interval change. IMPRESSION: No mammographic evidence of malignancy. Recommend routine screening mammography in one year. BI-RADS Category 1: Negative Reviewed, dictated and finalized at location .
== END 2024-09-26 07:15 | disposition home or self-care (01) ==
LOC: MICIMG 07:15
PROVIDERS: PCP Clinical Nurse Specialist; Visit Provider Clinical Nurse Specialist
DX: Z12.31 Encounter for screening mammogram for malignant neoplasm of breast (principal)
CPT/HCPCS: 77063; 77067

== ENCOUNTER 2025-01-19 08:52 | Outpatient (CLI) | payer OTHER, SELFPAY ==
--- OUTSIDE RECORDS SUMMARY | 2025-01-19 09:12 | XMS_ITS | Clinical Summary ---
Author Organization [facility] [employer] Address [address] [place] [address] Care Team Providers Care Motor Analyst Name Role Phone Alphonse Pond MD Primary Care Provider Source Comments [facility] [employer],non-owned Affiliates and Associated Physician Practices is amultiple site organization consisting of ambulatory clinics and hospital sitesin [place], [place], [place] and [place]. This disclosure is being madepursuant to the Care Everywhere program and may not contain all information available regarding this patient. Last updated 17.[facility] [employer] Allergies Active Allergy Reactions Criticality Noted Date [...] on file Legal Sex Female 6:17 AM MANAGER SKILLED Gender Identity Not on file Sexual Orientation Not on file Last Filed Vital Signs Vital Sign Reading Time Taken Comments Blood Pressure 110/80 04/28/2017 9:58 AM MANAGER SKILLED Pulse 96 04/28/2017 9:58 AM MANAGER SKILLED Temperature 37.1 C (98.8 F) 04/28/2017 9:58 AM MANAGER SKILLED Respiratory Rate 16 04/28/2017 9:58 AM MANAGER SKILLED Oxygen Saturation 98% 04/28/2017 9:58 AM MANAGER SKILLED Inhaled Oxygen Concentration - - Weight 74.8 kg (165 lb) 04/28/2017 9:58 AM MANAGER SKILLED Height 160 cm (5' 3) 04/28/2017 9:58 AM MANAGER SKILLED Body Mass Index 29.23 04/28/2017 9:58 AM MANAGER SKILLED Plan of Treatment Health Maintenance Due Date Last Done Comments COLOGUARD (AGES 45-75) - COL ON CA SCREENING 1970 COLON MONITORING 1970 COLONOSCOPY - COLON CA SCREENING 1970 CT COLONOGRAPHY - COLON CA SCREENING 1970 Colorectal Cancer Screening 1970 FIT - COLON CA SCREENING 1970 FLEX SIG - COLON CA SCREENING 1970 LIPID TESTING 1970 MAMMOGRAM 1970 HIV SCREENING 1985 HEPATITIS C SCREENING 02/01/1988 DTAP/TDAP/TD VACCINES (1 - Tdap) 1989 HEPATITIS B VACCINE (1 of 3 - 19+ 3-dose series) 1989 PNEUMOCOCCAL VACCINE 50+ (1 of 1 - PCV) 02/06/2020 ZOSTER VACCINE (1 of 2) 02/06/2020 DEPRESSION SCREENING 03/23/2024 COVID-19 VACCINE (1 - 2023-2 5 season) 2024 INFLUENZA VACCINE (#1) 2024 HIB VACCINE Aged Out No longer [...] patient's age to complete this topic Insurance [facility] Care Teams Motor Analyst Relationship Specialty Start Date End Date Alphonse Pond MD [address] [place] [address] [place] [address] PCP - General Family Medicine 04/28/17
[2025-01-19 19:00] LABS: Hematocrit 40.9 % (37.0-47.0); Hemoglobin 13.6 g/dL (12.0-15.0); Immature Granulocyte Percent A 0.2 % (0-0.5); Lymphocytes Absolute Auto 2.28 K/mm3 (0.9-3.2); Mean Corpuscular HGB Conc 33.3 g/dl (32-36); Mean Corpuscular Hemoglobin 31.5 pg (26-34); Mean Corpuscular Volume 94.7 fl (80-100); Nucleated Red Blood Cells Absolute Auto 0.000 K/mm3 (0.0-0.012); Nucleated Red Blood Cells Perc 0.0 % (0.0-0.2); Platelet Count Result 156 k/mm3 (150-375); Red Blood Count 4.32 M/mm3 (4.2-5.4); White Blood Count 4.8 K/mm3 (4.5-10.0)
[2025-01-19 19:13] LABS: Alanine Aminotransferase 42 U/L (6-35); Albumin Level 4.1 g/dL (3.5-5.1); Alkaline Phosphatase 98 U/L (38-126); Anion Gap 6 mmol/L (4-12); Aspartate Amino Transferase 87 U/L (14-36); Bilirubin,Total 1.0 mg/dL (0.2-1.3); Blood Urea Nitrogen 11 mg/dL (7-17); Calcium 8.8 mg/dL (8.4-10.2); Carbon Dioxide 31 mmol/L (22-30); Chloride 103 mmol/L (98-107); Cholesterol 126 mg/dL (0-200); Estimated Glomerular Filt Rate > 60; Glucose 80 mg/dL (65-110); HDL Direct 55 mg/dL; Potassium 3.5 mmol/L (3.4-5.0); Sodium 140 mmol/L (137-145); Total Protein 7.6 g/dL (6.3-8.2); Triglycerides 65 mg/dL (<150)
[2025-01-19 19:56] LABS: Thyroid Stimulating Hormone 1.080 uIU/mL (0.465-4.680)
== END 2025-01-19 08:53 | disposition home or self-care (01) ==
LOC: ANHGOSHLAB 08:52
PROVIDERS: PCP Clinical Nurse Specialist; Visit Provider Clinical Nurse Specialist
DX: K76.0 Fatty (change of) liver, not elsewhere classified (principal); D69.6 Thrombocytopenia, unspecified; E78.5 Hyperlipidemia, unspecified; E55.9 Vitamin D deficiency, unspecified; Z13.29 Encounter for screening for other suspected endocrine disorder; G43.019 Migraine without aura, intractable, without status migrainosus
CPT/HCPCS: 36415; 80053; 80061; 82306; 84443; 85025